=== PATIENT | male | born 2000 | race Caucasian/White ===

== ENCOUNTER 2024-07-11 09:09 | Emergency (ER) | payer SELFPAY ==
[~2024-07-11] VITALS: Ht 175.3 cm; Wt 140.4 kg
[2024-07-11] MEDS ORDERED: PROC1AER16 PR (13:02)
[2024-07-11 13:13] VITALS: BP 134/92; TEMP 97.7; O2SAT 96
== END 2024-07-11 13:14 | disposition home or self-care (01) ==
LOC: M ED 09:09
DX: K64.8 Other hemorrhoids (principal); Z88.0 Allergy status to penicillin; Z79.899 Other long term (current) drug therapy

== ENCOUNTER → 2025-04-25 | Outpatient (CLI) | payer MEDICAID, SELFPAY ==
[~2025-04-25] MED LIST: PROC1AER16 PR
== END ==
LOC: M RAD 10:30
PROVIDERS: ATTEND Physician Assistant
DX: S52.124A Nondisplaced fracture of head of right radius, initial encounter for closed fracture (principal); Y93.9 Activity, unspecified; Y92.9 Unspecified place or not applicable